=== PATIENT | female | born 1965 | race Caucasian/White ===

== ENCOUNTER 2019-08-21 02:22 | Outpatient (CLI) | payer BC, SELFPAY ==
--- NOTE | 2019-08-21 12:18 | DI.MAMMO_ITS ---
EXAM: MAMMO SCREENING CLINICAL HISTORY: SCREENING MAMMOGRAM, Z12.31 TECHNIQUE: Mammograms were interpreted according to the usual protocol including computer analysis w [employer] CAD system, tomosynthesis and C-view imaging. COMPARISON: Patient's previous films are unavailable. FINDINGS: The breasts are composed of scattered fibroglandular densities, Breast Density category B. No suspicious masses or suspicious microcalcifications are seen. No skin thickening or abnormal axillary lymph nodes are seen. There is motion at the lateral aspect of the left CC view. A repeat left CC view is requested. IMPRESSION: Left breast: BI-RADS category 0, repeat left CC view is requested due to motion. Right breast: BIRADS Category 1, negative mammogram. Yearly screening mammography is recommended. BI-RADS Cat 0 - Assessment Incomplete: Need additional imaging evaluation Breast Density - Category B - Scattered areas of fibroglandular density
== END 2019-08-21 02:42 ==
PROVIDERS: PCP Family Medicine; Visit Provider Nurse Practitioner Family
DX: Z12.31 Encounter for screening mammogram for malignant neoplasm of breast (principal)
CPT/HCPCS: 77063; 77067

== ENCOUNTER 2019-08-23 12:06 | Outpatient (CLI) | payer BC, SELFPAY ==
--- NOTE | 2019-08-23 09:20 | DI.MAMMO_ITS ---
EXAM: MG MAMMO SCREEN CALL BACK UNI CLINICAL HISTORY: THERE IS MOTION AT THE LATERAL ASPECT OF THE LT CC VIEW, REPEAT LT CC VIEW TECHNIQUE: Mammograms were interpreted according to the usual protocol including computer analysis w [employer] CAD system, tomosynthesis and C-view imaging. FINDINGS: Repeat CC view was performed due to motion on the initial CC view of the left breast. On today's exa mination there is no significant motion artifact. No mass or clumped microcalcification identified. IMPRESSION: No specific evidence of malignancy. Routine screening examinations suggested at yearly intervals in t his age group according to the ACS/ACR guidelines. Category 1, breast density category b. BI-RADS Cat 1 - Negative Breast Density - Category B - Scattered areas of fibroglandular density
== END 2019-08-23 12:26 ==
PROVIDERS: PCP Family Medicine; Visit Provider Nurse Practitioner Family
DX: Z12.31 Encounter for screening mammogram for malignant neoplasm of breast (principal); R92.8 Other abnormal and inconclusive findings on diagnostic imaging of breast; N64.59 Other signs and symptoms in breast
CPT/HCPCS: 77063; 77067

== ENCOUNTER 2020-10-25 08:51 | Outpatient (CLI) | payer BC, SELFPAY ==
--- NOTE | 2020-10-25 08:15 | DI.RAD_ITS ---
EXAM: XR FINGER LT LITTLE CLINICAL HISTORY: pain in small finger. TECHNIQUE: 2D digital imaging was performed. COMPARISON: No exams were available for comparison FINDINGS: There is an oblique minimally displaced fracture through the diaphysis of the proximal phalanx of the 5th finger. This reaches the level of the neck-head junction on the lateral aspect. Does not appea r to obviously violate the proximal interphalangeal joint. No osseous lesions. No radiopaque foreig n body. IMPRESSION: DATA REPOSITORY: RADIATION DOSE DELIVERED:
== END 2020-10-25 09:11 ==
PROVIDERS: PCP Family Medicine; Referring Provider Family Medicine; Visit Provider Physician Assistant Surgical
DX: S62.617A Displaced fracture of proximal phalanx of left little finger, initial encounter for closed fracture (principal)
CPT/HCPCS: 73140

== ENCOUNTER 2020-11-19 07:45 | Day surgery (SDC) | payer BC, SELFPAY ==
--- NOTE | 2020-11-19 07:35 | W.PM.DSUDISC ---
Discharge Plan Disposition Patient Disposition: HOME Condition: Good Discharge Details Reason For Visit: Left Little Finger Proximal Phalanx Malunion Attending Provider: Alfredito Harris Primary Care Provider: Fidelia Valdez Home Meds and New Rx's Prescriptions: New hydrocodone-acetaminophen 5-325 mg tablet 1 tab PO Q8H PRN PRN (Reason: pain) Qty: 6 RF: 0 acetaminophen 500 mg tablet 500 mg PO Q6H PRN PRN (Reason: pain) Qty: 40 RF: 3 ibuprofen 600 mg tablet 600 mg PO TID PRN (Reason: pain) Qty: 90 RF: 3 Discharge Instructions Additional Instructions: Discharge Instructions Activity: You should limit use of the operative finger for the first few days. After the initial dressing is removed you may start gentle motion of the finger but limit any excessive motion or forceful gripping until the sutures have been removed and you are instructed in activities by Dr. Harris and his team. Dressings: You should keep the initial surgical dressing in place for at least 3 days. You may remove your dressings and get the wound wet after 3 days (11/22). You should keep the dressings and the wound clean at all times. Once the dressing comes down you may cover the wound with a bandaid or light gauze wrap Medications: - You should take Tylenol and Ibuprofen around the clock as prescribed or per information technology assistant's recommendations. - You have Hydrocodone prescribed for breakthrough pain control. Take only as needed and limit use as much as possible. This may cause constipation. Follow-up: 5-7 days for wound check and suture removal. Activity:: Elevate Remove Dressings/Wound Care:: 72 hours Shower/Bathe:: 72 hours Diet:: As Tolerated Discharge Orders Discharge Orders: Discharge Order (Routine); Ordered 11/19/20 Ordered By: Alfredito Harris DS: Diagnosis Discharge Diagnosis (1) Disp fracture of proximal phalanx of left little finger with malunion: Status: Acute
[2020-11-19 07:57] VITALS: BP 128/79; PULSE 79; RESP 16; TEMP 36.4; O2SAT 99
[2020-11-19] MEDS: Sodium Bicarbonate 50 MEQ/50 ML VIAL (10:05)
--- NOTE | 2020-11-19 10:26 | ROE_ITS ---
Date of service: 11/19/20 Time of Service: 10:27 Operative Note Operative Note DATE OF PROCEDURE: 11/19/20 PRE-OP DIAGNOSIS: Left Little Finger Proximal Phalanx Malunion POST-OP DIAGNOSIS: same PROCEDURE: Ostectomy of proximal phalanx malunion prominence of left little finger SURGEON: Alfredito Harris ANESTHESIA TYPE: Local By Surgeon ESTIMATED BLOOD LOSS: 5 PATHOLOGY: none sent COMPLICATIONS: None Patient was transported to: same day Patient's condition: stable Indications: I have seen Shavon in clinic for restricted and painful flexion due to a malunion of the proximal phalanx. X-ray confirmed the malunion and the palmar positioning of the fragment. The symptoms had not responded to conservative measures. I discussed trigger finger release with the patient. I reviewed the risks of the procedure to include, but not limited to, bleeding, infection, pain, stiffness, damage to nerves or vessels, continued symptoms. Despite these risks, the patient elected to proceed. Findings: There was a prominence to the distal end of the proximal phalanx which was removed and the joint was visualized. The flexor tendons were inspected and the patient was able to move the finger without any catching or restricted motion. Procedure Description: Shavon was greeted in the preoperative holding area where the correct side was identified and marked. The consent was reviewed with the patient and signed. All questions were answered. She was taken back to the operating room. The patient was placed into the supine position on the operating room table with the left arm on an arm board. All bony prominences were well padded. No prophylactic antibiotics were adm inistered since this was a clean, elective hand surgical case. The left arm was then prepped with Chloraprep and draped in a standard fashion with stockinette and extremity drape. A timeout to confirm correct identity, side and site, procedure, allergies, anesthesia, and medical concerns was performed. A digit block was then administered using 1% Lidocaine with Epinephrine and buffered with Sodium Bicarbonate. The surgical site was marked as a Kacey type incision directly over the PIP flexion crease of the little finger. Once the digital block had set up, the area, overlying the PIP joint was then anesthetized with 1% Lidocaine with Epinephrine. The patient tolerated this well and once the anesthetic had setup, the procedure began. A Kacey incision was made through skin only. The deep tissues were dissected bluntly. The A3 isa was released and flexor tendons were retracted along with neurovascular structures. The prominence of the proximal phalanx was palpated and the joint was identified. A longitudinal incision was made in the volar plate. The flaps of the volar plate were elevated to see the PIP joint. The joint surface was obstructed by the prominence of the proximal phalanx malunion. Using a rongeur, I removed this prominence. With this removed I was able to look into the joint and see the chondral surface. A freer elevator was easily passed into the joint. Finger motion, both pasively and actively was checked and noted to be much improved. There was minimal restriction in flexion compared to the preoperative status. I then irrigated the wound. A single suture was placed in the volar plate reapproximating this anatomically. To decrease risk of scarring I used just the one suture. There was no adhesion to the overlying flexor tendons. The A3 isa was not repaired. The tendons were healthy appearing without any scarring or sign of damage. There was full motion of the finger without any limitation and no bunching of the tendons. The wound was then irrigated and the skin was closed with a 4-0 Nylon. This was dressed with gauze and tubegauze dressing. The patient tolerated the procedure well and was returned to the [facility] Day Surgery area in a stable condition suffering no known complication.
== END 2020-11-19 10:31 | disposition home or self-care (01) ==
LOC: SUR 07:45
PROVIDERS: PCP Family Medicine; Visit Provider Student in an Organized Health Care Education/Training Program
PROC: (CPT 26235; principal; 2020-11-19 09:30)
DX: S62.617P Displaced fracture of proximal phalanx of left little finger, subsequent encounter for fracture with malunion (principal)
CPT/HCPCS: 26235

== ENCOUNTER 2021-03-14 01:21 | Outpatient (CLI) | payer BC, SELFPAY ==
--- NOTE | 2021-03-14 | DI.MAMMO_ITS ---
Exam(s) MAMMO SCREENING EXAM: MAMMO SCREENING CLINICAL HISTORY: SCREENING, Z12.31 TECHNIQUE: Bilateral full field digital CC and MLO mammographic images were obtained with 3D tomosyn thesis and utilizing computer aided detection (CAD). COMPARISON: Available for comparison. FINDINGS: Masses/Architectural Distortion: None seen. Microcalcifications: No suspicious pleomorphic-type are seen. Skin Thickening/Nipple Retraction: None. IMPRESSION: 1. No significant interval change with no specific features of malignancy noted. 2. Unless there is more urgent need, screening mammography is recommended, as per [place] [employer] guidelines. BI-RADS Category 1 - Negative Breast Density - Category B - Scattered areas of fibroglandular density Breast density category C or D implies that the patient has dense breast tissue. Dense breast tissue is very common and is not abnormal but dense breast tissue can make it harder to find cancer on a ma mmogram. Also, dense breast tissue may increase their breast cancer risk. This information about the result of the mammogram report was provided to the patient to raise their awareness. Use this report when you speak with the patient about their risks for breast cancer, which includes their family hist ory. At that time, you may recommend for more screening tests (Ultrasound or MRI) as they might be us eful based on their risk. A negative radiographic report should not delay biopsy if a dominant or clinically suspicious mass is present. Up to ten percent of cancers are not identified on mammography. A negative report may reinforce clinical impression. Adenosis and dense breasts may obscure an underlying neoplasm. False positive reports average 6 to 10%. Patient will receive a letter notifying them of these results.
== END 2021-03-14 01:41 ==
PROVIDERS: PCP Family Medicine; Visit Provider Family Medicine
DX: Z12.31 Encounter for screening mammogram for malignant neoplasm of breast (principal); R92.8 Other abnormal and inconclusive findings on diagnostic imaging of breast
CPT/HCPCS: 77063; 77067

== ENCOUNTER 2022-11-19 10:06 | Outpatient (CLI) | payer BC, SELFPAY ==
--- NOTE | 2022-11-19 09:15 | DI.RAD_ITS ---
Exam(s) XR KNEE LT 4V AP,LAT,CHANEL,PAT EXAM: XR KNEE LT 4V AP,LAT,CHANEL,PAT CLINICAL HISTORY: LEFT KNEE PAIN. TECHNIQUE: 2D digital imaging was performed of the left knee. Four images were obtained. Merchant, AP, lateral and PA tunnel views were obtained. COMPARISON: No exams were available for comparison FINDINGS: BONES: No acute fracture is present. No bony destructive lesion is seen. JOINTS: The knee is normally aligned. No joint effusion is seen. SOFT TISSUE: Normal. IMPRESSION: Normal radiographs of the left knee. DATA REPOSITORY: RADIATION DOSE DELIVERED:
== END 2022-11-19 10:07 | disposition home or self-care (01) ==
LOC: DIORS 10:06
PROVIDERS: PCP Family Medicine; Referring Provider Family Medicine; Visit Provider Student in an Organized Health Care Education/Training Program
DX: M25.562 Pain in left knee (principal)
CPT/HCPCS: 73564

== ENCOUNTER 2024-06-28 01:03 | Outpatient (CLI) | payer BC, SELFPAY ==
--- NOTE | 2024-06-28 | DI.RAD_ITS ---
Exam(s) XR LUMBAR SPINE COMPLETE EXAM: XR LUMBAR SPINE COMPLETE CLINICAL HISTORY: Low back pain, M54.50. TECHNIQUE: 2D digital imaging was performed. Five views. COMPARISON: No exams were available for comparison FINDINGS: BONES: No fracture or destructive lesion. Vertebral body heights are maintained. Minimal facet hyp ertrophy identified . DISKS: Intervertebral disc spaces are maintained. Small endplate osteophytes at L1-2. ALIGNMENT: Lumbar spinal alignment is within normal limits. SOFT TISSUE: Normal. IMPRESSION: Mild degenerative changes. DATA REPOSITORY: RADIATION DOSE DELIVERED:
== END 2024-06-28 01:23 ==
LOC: DI 01:03
PROVIDERS: PCP Family Medicine; Visit Provider Family Medicine
DX: M51.362 Other intervertebral disc degeneration, lumbar region with discogenic back pain and lower extremity pain (principal)
CPT/HCPCS: 72110

== ENCOUNTER 2025-07-12 05:31 | Outpatient (CLI) | payer BC, SELFPAY ==
--- NOTE | 2025-07-12 | DI.MAMMO_ITS ---
Exam(s) MAMMO SCREENING EXAM: MAMMO SCREENING CLINICAL HISTORY: Z12.31 Screening TECHNIQUE: Mammograms were interpreted according to the usual protocol including computer analysis with CAD system, tomosynthesis and C-view imaging. COMPARISON: 2018 and 2020 FINDINGS: The breasts are composed of scattered fibroglandular densities, Breast Density category B. No suspicious masses or suspicious microcalcifications are seen. No skin thickening or abnormal axillary lymph nodes are seen. There has been no significant change from prior exams. IMPRESSION: BI-RADS Category 1, Negative mammogram Yearly screening mammography is recommended. Breast Density - Category B - There are scattered areas of fibroglandular density. Breast density Category C or D implies that the patient has dense breast tissue. Dense breast tissue can make it harder to find cancer on a mammogram. Dense breast tissue is also associated with an increased risk of breast cancer. This information about the result of the mammogram report was provided to the patient to raise their awareness. Use this report when you speak with the patient about their risks for breast cancer, which includes their family history. At that time, you may recommend additional screening tests (Ultrasound or MRI) as these tests may add significant information. A negative radiographic report should not delay biopsy if a dominant or clinically suspicious mass is present. Up to ten percent of cancers are not identified on mammography. A negative report may reinforce clinical impression. Adenosis and dense breasts may obscure an underlying neoplasm. False positive reports average 6 to 10%. Patient will receive a letter notifying them of these results.
== END 2025-07-12 05:51 ==
PROVIDERS: PCP Family Medicine; Visit Provider Family Medicine
DX: Z12.31 Encounter for screening mammogram for malignant neoplasm of breast (principal); R92.323 Mammographic fibroglandular density, bilateral breasts
CPT/HCPCS: 77063; 77067